=== PATIENT | female | born 1985 | race Caucasian/White ===

== ENCOUNTER 2021-09-26 18:28 | Emergency (ER) | payer OTHER ==
[~2021-09-26] VITALS: Ht 162 cm; Wt 86.2 kg
[~2021-09-26 18:28] MED LIST: ACETAMINOPHEN-1 EAC1 PO; CELEXA40 MG PO; CIPROFLOXACIN500 M3 PO; FLEXERIL PO; NOHOMEMEDICATIONS; NORCO 5-325 TA1 EACH PO; PERCOCET 7.5-31 EACH PO; PROPRANOLOL 1010 MG PO; PROTONIX 20 MG20 M1 PO; PYRIDIUM200 MG PO; ROBAXIN500 MG PO; ZANTAC 150MG T150 MG PO
[2021-09-26] MEDS ORDERED: FLEXERIL PO (18:34)
[2021-09-26] MEDS ORDERED: HORIZANT600 MG PO (18:34)
[2021-09-26] MEDS ORDERED: ST. JOSEPH ASPI81 MG PO (18:34)
[2021-09-26] MEDS ORDERED: LIPITOR 20 MG T20 M1 PO (18:35)
[2021-09-26] MEDS ORDERED: PROZAC40 MG PO (18:35)
[2021-09-26 19:55] LABS: INFLUENZA A ANTIGEN Negative (Negative); INFLUENZA B ANTIGEN Negative (Negative)
[2021-09-26 20:08] VITALS: BP 135/67
== END 2021-09-26 20:08 | disposition home or self-care (01) ==
LOC: M.ERS 18:28
PROVIDERS: Emergency Medicine
DX: R05.9 Cough, unspecified (principal); Z20.822 Contact with and (suspected) exposure to COVID-19; Z79.899 Other long term (current) drug therapy